=== PATIENT | male | born 1965 | race Caucasian/White ===

== ENCOUNTER 2017-06-26 22:36 | Observation (INO) ==
[2017-06-26 23:36] LABS: BUN/Creatinine Ratio 14 (6-26); Blood Urea Nitrogen 18 mg/dL (8-26); Carbon Dioxide 25 mEq/L (19-29); Chloride 107 mEq/L (98-109); Glucose 88 mg/dL (70-99); Osmolality,Calculated 293 (280-300); Potassium 3.6 mEq/L (3.5-4.5); Sodium 141 mEq/L (136-145); eGFR For African Americans > 60 (> 60); eGFR For Non-African Americans 57 (> 60)
--- NOTE | 2017-06-26 23:44 | Emergency Department Note ---
Disposition Clinical Impression: Dizziness Headache Qualifiers: Headache type: unspecified Headache chronicity pattern: acute headache Intractability: intractable Qualified Code(s): R51 - Headache Disposition: Admitted As Inpatient Condition: Good Time of Disposition: 02:04 General Adult HPI - General Chief complaint: ED General Medical Stated complaint: high bp dizziness Time Seen by Provider: 06/26/17 22:41 Source: patient Mode of arrival: ambulatory Limitations: other (MRDD) Nursing Notes Reviewed: Yes Vital Signs Reviewed: Yes - History of Present Illness HPI Narrative: 51-year-old male with significant past medical history of hypertension and MRDD presenting to the emergency department with chief complaint of dizziness, headache and high blood pressure. According to the patient this evening around 10 PM he is getting ready to take a bath and he had sudden diffuse onset of headache. He states he also felt like he was dizzy. He states it was not like the room was spinning but rather weakness. Patient states he noticed his blood pressure was elevated this evening as well approximately 160 systolic and 100 diastolic. Patient has no significant cardiac or stroke history. History of present illness Limited due to MRDD. He states he has a history of headaches but this one is very different. He normally gets a localized headache to the frontal area. This one is diffuse and much worse than his previous. Pain Scale: 0 - Related Data Allergies Allergy/AdvReac Type Severity Reaction Status Date / Time pollen extracts Allergy See Verified 06/26/17 22:39 Comments All systems ED: reviewed and negative except as stated. Constitutional: Denies: fever, chills Eyes: Reports: as per HPI ENT ED: Reports: as per HPI Cardiovascular: Denies: chest pain, palpitations Respiratory: Denies: cough, dyspnea, wheezes Gastrointestinal: Denies: abdominal pain, nausea, vomiting Genitourinary: Reports: as per HPI Musculoskeletal: Reports: as per HPI Integumentary: Denies: rash, abrasion Neurological: Reports: headache. Denies: weakness, numbness, paresthesias Psychiatric: Reports: as per HPI Endocrine: Reports: as per HPI Hematological/Lymphatic: Reports: as per HPI Allergic/Immunologic: Reports: as per HPI Past Medical History - Past Medical History Attestation: Yes The following information was validated with the patient. Medical history: Reports: diabetes, hypertension Psychiatric history: Reports: no psych history - Social History Smoking Status: Never smoker Smokeless Tobacco Status: No Alcohol use: Reports: none Drug use: Reports: none Physical Exam - General Limitations: no limitations General appearance: alert, in no apparent distress - Head Head exam: atraumatic, normocephalic, normal inspection - Eye Eye exam: Present: normal appearance, PERRL. Absent: scleral icterus, conjunctival injection - Neck Neck exam: Present: normal inspection, full ROM. Absent: tenderness, meningismus - Chest Chest inspection: Present: normal inspection, symmetric chest wall rise. Absent : tenderness, rash - Respiratory Respiratory exam: Present: normal lung sounds bilaterally. Absent: respiratory distress, wheezes - Cardiovascular Cardiovascular exam: Present: regular rate, normal rhythm, normal heart sounds - Abdominal Exam Abdominal exam: Present: soft, Non-Tender. Absent: distention, guarding, rebound - Extremities Exam Extremities exam: Present: normal inspection, full ROM - Neurological Exam Neurological exam: Present: alert, oriented X3, CN II-XII intact, other (Ataxic gait according to health care worker. Extraocular movements limited. Unsure if this is due to physical abnormality or patient's inability to understand the test. Cerebellar exam within normal limits.) - Psychiatric Psychiatric exam: Present: normal affect, normal mood - Skin Skin exam: Present: warm, intact Course Course Narrative: 51-year-old male presenting to the emergency department with chief complaint of acute dizziness and headache. Patient is alert and oriented 3 in the room with stable vital signs. He does have MR DD. Limited physical exam. Unsure if this is due to physical abnormality or inability of the patient to understand the instructions. We will perform a CT of the head along with basic lab work including hemoglobin, BMP. Disposition pending results. He agrees with this plan. - Reevaluation(s) Reevaluation #1: All of patient's lab work and CT imaging is comes back within normal limits. Patient still states he has having a headache at this time. When we tried to him believe the patient he was ataxic which is not patient's baseline. Patient originally declined having an LP done but did agree to getting admitted. He is alert and oriented 3 in the room and stable vital signs at this time. I spoke with the hospitalist on-call who agrees to accept the patient at this time. Reevaluation #2: Patient has decided that he would like the lumbar puncture. vice president global digital marketing Dr. Zafar will complete the lumbar puncture. Please refer to his procedure note. After lumbar puncture we will admit the patient to the floor. Vital Signs Temperature 97.7 F 06/26/17 22:36 Pulse Rate 74 06/26/17 22:36 Respiratory Rate 20 06/26/17 22:36 Blood Pressure 155/95 06/26/17 22:36 O2 Sat by Pulse Oximetry 98 06/26/17 22:36 Temperature 97.7 F 06/26/17 22:36 Pulse Rate 81 06/27/17 00:23 Respiratory Rate 16 06/26/17 23:56 Blood Pressure 147/92 06/27/17 00:23 O2 Sat by Pulse Oximetry 100 06/27/17 00:23 Oxygen Delivery Oxygen Delivery Room Air Medical Decision Making - Lab Data Result diagrams: 06/26/17 22:58 06/26/17 22:58 Lab Results 06/26/17 06/26/17 06/26/17 Range/Units 22:58 22:58 23:38 Hgb 13.4 (12.9-16.9) g/dL Sodium 141 (136-145) mEq/L Potassium 3.6 (3.5-4.5) mEq/L Chloride 107 (98-109) mEq/L Carbon Dioxide 25 (19-29) mEq/L BUN 18 (8-26) mg/dL Creatinine 1.33 H (0.72-1.25) mg/dL Est GFR ( Amer) > 60 (> 60) Est GFR (Non-Af Amer) 57 L (> 60) BUN/Creatinine Ratio 14 (6-26) Glucose 88 (70-99) mg/dL Calculated Osmolality 293 (280-300) Calcium 10.0 (8.6-10.8) mg/dL Urine Color Yellow (Yellow) Urine Clarity Clear (Clear) Urine pH 6.5 (5.0-8.0) pH Units Ur Specific [place] 1.021 (1.010-1.025) Urine Protein Negative (Neg-Trace) mg/dL Urine Glucose (UA) Normal (Normal) mg/dL Urine Ketones Negative (Negative) mg/dL Urine Blood Negative (Negative) Urine Nitrite Negative (Negative) Urine Bilirubin Negative (Negative) Urine Urobilinogen Normal (Normal) mg/dL Ur Leukocyte Esterase Trace H (Negative) Urine Microscopic RBC 0-3 (0-3) per hpf Urine Microscopic WBC 5-15 H (0-3) per hpf Ur Squamous Epith Cells Moderate H (None-Few) per lpf Urine Bacteria None Seen (None-Few) per hpf Hyaline Casts None Seen (None-Few) per lpf Ur Culture Indicated? YES A (NO) Attestation Statement - Attestation Attestation: I examined this patient and my medical decision-making was reviewed with the Resident Physician. I agree with the documented findings, disposition and treatment plan as described except to the extent set forth below. Sudden onset severe headache, no h/o similar. No photophobia, no neck pain/ stiffness, no fever. Pain maximal at onset per pt report. Suspicious for SAH despite lack of photophobia, neck stiffness. Pt initially refused LP to r/o SAH , then changed his mind. CT unremarkable. Present and available for Dr. Thompson's LP, see his note for details. Pt still dizzy, ataxic; admit for observation, MRI in AM, possible neuro consult.
[2017-06-26 23:47] LABS: Bilirubin,Urine Negative (Negative); Blood,Urine Negative (Negative); Clarity,Urine Clear (Clear); Color,Urine Yellow (Yellow); Glucose,Urine (UA) Normal (Normal); Ketones,Urine Negative (Negative); Leukocyte Esterase,Urine Trace (Negative); Nitrite,Urine Negative (Negative); PH,Urine 6.5 pH Units (5.0-8.0); Protein,Urine Negative (Neg-Trace); Specific Gravity,Urine 1.021 (1.010-1.025); Urobilinogen,Urine Normal (Normal)
[2017-06-26 23:50] LABS: Bacteria,Urine None Seen per hpf (None-Few); Hyaline Casts,Urine None Seen per lpf (None-Few); RBC,Urine 0-3 per hpf (0-3); Squamous Epithelial Cell,Urine Moderate per lpf (None-Few)
[2017-06-27] MEDS ORDERED: 0.9 % Sodium Chloride 1,000 ML IVC ONE (00:02)
[2017-06-27] MEDS ORDERED: Naloxone 0.4 MG/ML INJ IVP PRN ×2 (01:29→01:31)
--- NOTE | 2017-06-27 01:33 | Internal Med History&Physical ---
Date of Encounter: 06/27/17 Time of Encounter: 01:32 Assessment and Plan (1) Headache Current visit: Yes Status: Acute has headache,dizziness and ataxia d/w ED for LP to r/o SAH CT head w/o acute findings MRI w/o contrast to r/o occipital CVA Further investigation/management pending above studies Qualifiers: Headache type: other headache syndrome Qualified Code(s): G44.89 - Other headache syndrome (2) Dizziness Current visit: Yes Status: Acute (3) Mental retardation Current visit: Yes Status: Acute baseline (4) HTN (hypertension) Current visit: Yes Status: Acute doubt symptoms caused by BP Prn hydralazine IV for SBP >160 close neurocheck monitoring for now Qualifiers: Hypertension type: essential hypertension Qualified Code(s): I10 - Essential (primary) hypertension Internal Medicine - H&P: HPI Chief complaint: Dizziness, headache History of present illness: Mr. Paniagua is a 51 year old male with MRDD, HTN, HLD, depression, DMII who presents with acute onset headache and dizziness this past evening. He has MRDD and has a health aide with him daily ([employer]). He ambulates independently at baseline. This evening, when he was helped to the bathroom to the shower, he had a sudden headache, radiates all over, 10/10 that is associated with dizziness and ataxia on ambulation. He denies any visual changes but with headache and dizziness persistent lasting for several hours with no improvement. CT/CT head/brain wo con IMPRESSION: No acute intracranial abnormality. Past Med Surg Social Fam HX - Past Medical History Medical history: diabetes, hypertension Psychiatric history: no psych history - Past Surgical History Surgical History: no surgical history, non-contributory - Social History Smoking Status: Never smoker Smokeless Tobacco Status: No Alcohol use: none Drug use: none - Additional Family History Additional family history: HTN Internal Medicine - H&P: Meds 3 Allergy/AdvReac Type Severity Reaction Status Date / Time pollen extracts Allergy See Verified 06/26/17 22:39 Comments All Systems PM: A 10-system review of systems was performed and is negative for pertinent findings except as documented above in the HPI. Review of systems: ROS 14 point review of systems reviewed as best as possible given presentation. Pertinent positive or negative as per HPI or otherwise reviewed as negative - Constitutional Vitals: Temp Pulse Resp BP Pulse Ox 97.7 F 81 16 147/92 100 06/26/17 22:36 06/27/17 00:23 06/26/17 23:56 06/27/17 00:23 06/27/17 00:23 Exam: General - AAO x 3 Psych - Appropriate affect/speech. No agitation Eyes - FLO. Eye lids intact. No scleral icterus Neuro - No gross peripheral or central neuro deficits with intact CN 2-12 exam Heart - Sinus. RRR. S1 and S2 present. No added HS/murmurs appreciated. No elevated JVD appreciated. Lung - Adequate air entry b/l, No crackles/wheezes appreciated GI - Soft, non-tender. No hepatosplenomegaly/ascites. BS+ - No CVA/suprapubic tenderness or palpable bladder distension Skin - Intact. No rash/petechiae/ecchymosis. Warm extremities. Trace b/l edema Internal Med - H&P Results - Labs CBC & Chem 7: 06/26/17 22:58 06/26/17 22:58
--- NOTE | 2017-06-27 02:31 | Emergency Department Note ---
Disposition Clinical Impression: Dizziness Headache Qualifiers: Headache type: unspecified Headache chronicity pattern: acute headache Intractability: intractable Qualified Code(s): R51 - Headache Disposition: Admitted As Inpatient Condition: Good General Adult HPI - General Chief complaint: ED General Medical Stated complaint: high bp dizziness Time Seen by Provider: 06/26/17 22:41 Source: patient Mode of arrival: ambulatory Limitations: no limitations - History of Present Illness Pain Scale: 0 - Related Data Allergies Allergy/AdvReac Type Severity Reaction Status Date / Time pollen extracts Allergy See Verified 06/26/17 22:39 Comments Constitutional: Denies: fever, chills Eyes: Reports: as per HPI ENT ED: Reports: as per HPI Cardiovascular: Denies: chest pain, palpitations Respiratory: Denies: cough, dyspnea, wheezes Gastrointestinal: Denies: abdominal pain, nausea, vomiting Genitourinary: Reports: as per HPI Musculoskeletal: Reports: as per HPI Integumentary: Denies: rash, abrasion Neurological: Reports: headache. Denies: weakness, numbness, paresthesias Psychiatric: Reports: as per HPI Endocrine: Reports: as per HPI Hematological/Lymphatic: Reports: as per HPI Allergic/Immunologic: Reports: as per HPI Past Medical History - Past Medical History Medical history: Reports: diabetes, hypertension Surgical history: Reports: no surgical history, non-contributory Psychiatric history: Reports: no psych history - Social History Smoking Status: Never smoker Smokeless Tobacco Status: No Alcohol use: Reports: none Drug use: Reports: none Physical Exam - General Limitations: no limitations General appearance: alert, in no apparent distress Course Course Narrative: I performed LP on patient, note opened for procedure note purposes. Please refer to Dr. Ureña's and Dr. Mota's note for further detail. Vital Signs Temperature 97.7 F 06/26/17 22:36 Pulse Rate 74 06/26/17 22:36 Respiratory Rate 20 06/26/17 22:36 Blood Pressure 155/95 06/26/17 22:36 O2 Sat by Pulse Oximetry 98 06/26/17 22:36 Temperature 97.7 F 06/26/17 22:36 Pulse Rate 81 06/27/17 00:23 Respiratory Rate 16 06/26/17 23:56 Blood Pressure 147/92 06/27/17 00:23 O2 Sat by Pulse Oximetry 100 06/27/17 00:23 Oxygen Delivery Oxygen Delivery Room Air Procedures - Lumbar Puncture Consent Obtained: written consent Time Out Performed: Yes Patient Position: upright Skin Prep: Povidone-Iodine 1% Local Anesthetic: lidocaine 1% Amount of anesthesia used (mL): 5 Spinal Needle Gauge: 20G Interspace Used: L3-L4 Fluid Initially Obtained: clear Additional Comments: First attempt at L4-L5 interspace not successful. Re-attempted L3-L4 and successful. No other complications. Tolerated well. Complications: none Medical Decision Making - Lab Data Result diagrams: 06/26/17 22:58 06/26/17 22:58 Lab Results 06/26/17 06/26/17 06/26/17 Range/Units 22:58 22:58 23:38 Hgb 13.4 (12.9-16.9) g/dL Sodium 141 (136-145) mEq/L Potassium 3.6 (3.5-4.5) mEq/L Chloride 107 (98-109) mEq/L Carbon Dioxide 25 (19-29) mEq/L BUN 18 (8-26) mg/dL Creatinine 1.33 H (0.72-1.25) mg/dL Est GFR ( Amer) > 60 (> 60) Est GFR (Non-Af Amer) 57 L (> 60) BUN/Creatinine Ratio 14 (6-26) Glucose 88 (70-99) mg/dL Calculated Osmolality 293 (280-300) Calcium 10.0 (8.6-10.8) mg/dL Urine Color Yellow (Yellow) Urine Clarity Clear (Clear) Urine pH 6.5 (5.0-8.0) pH Units Ur Specific [place] 1.021 (1.010-1.025) Urine Protein Negative (Neg-Trace) mg/dL Urine Glucose (UA) Normal (Normal) mg/dL Urine Ketones Negative (Negative) mg/dL Urine Blood Negative (Negative) Urine Nitrite Negative (Negative) Urine Bilirubin Negative (Negative) Urine Urobilinogen Normal (Normal) mg/dL Ur Leukocyte Esterase Trace H (Negative) Urine Microscopic RBC 0-3 (0-3) per hpf Urine Microscopic WBC 5-15 H (0-3) per hpf Ur Squamous Epith Cells Moderate H (None-Few) per lpf Urine Bacteria None Seen (None-Few) per hpf Hyaline Casts None Seen (None-Few) per lpf Ur Culture Indicated? YES A (NO)
[2017-06-27 03:25] LABS: Red Blood Cell,CSF < 0.002 M/mcL
[2017-06-27 03:26] LABS: Red Blood Cell,CSF < 0.002 M/mcL
[2017-06-27] MEDS: amLODIPine 5 MG TABLET PO SCH ×2 (03:36→09:12)
[2017-06-27 03:53] LABS: Glucose,CSF 49 mg/dL (40-70); Total Protein,CSF 99 mg/dL (15-45)
[2017-06-27 04:07] LABS: Appearance,CSF Clear (Clear)
[2017-06-27 04:09] LABS: Appearance,CSF Clear (Clear)
[2017-06-27 05:01] LABS: Basophils % 0.6 %; Eosinophils # 0.1 K/mcL (0.0-0.6); Eosinophils % 1.9 %; Hematocrit 39.3 % (37.5-50.1); Hemoglobin 12.9 g/dL (12.9-16.9); Immature Granulocytes % 0.4 % (0-4); Lymphocytes # 1.8 K/mcL (0.6-4.6); Lymphocytes % 25.1 %; Mean Corpuscular HGB Conc 32.8 g/dL (31.6-35.5); Mean Corpuscular Hemoglobin 28.7 pg (28.0-33.3); Mean Corpuscular Volume 87.3 fL (83.0-100.0); Mean Platelet Volume 9.7 fL (9.4-12.4); Monocytes # 0.5 K/mcL (0.0-1.3); Monocytes % 6.8 %; Neutrophils # 4.6 K/mcL (1.6-8.9); Platelet Count 138 K/mcL (140-400); Red Cell Distribution Width 14.6 % (11.5-14.5); Segmented Neutrophils % 65.2 %
[2017-06-27 05:19] LABS: BUN/Creatinine Ratio 16 (6-26); Blood Urea Nitrogen 18 mg/dL (8-26); Carbon Dioxide 21 mEq/L (19-29); Chloride 110 mEq/L (98-109); Glucose 94 mg/dL (70-99); Osmolality,Calculated 294 (280-300); Potassium 3.6 mEq/L (3.5-4.5); Sodium 141 mEq/L (136-145); eGFR For African Americans > 60 (> 60); eGFR For Non-African Americans > 60 (> 60)
[2017-06-27] MEDS: hydroCHLOROthiazide 25 MG TABLET PO SCH (09:11)
[2017-06-27] MEDS: Topiramate 100 MG TABLET PO SCH ×2 (09:12→21:42)
[2017-06-27] MEDS: Lisinopril 20 MG TABLET PO SCH (09:13)
[2017-06-27] MEDS: *HR* SitaGLIPtin 100 MG TABLET PO SCH (09:13)
--- NOTE | 2017-06-27 13:51 | Internal Med Progress Note ---
Date of Encounter: 06/27/17 Time of Encounter: 13:49 - Assessment and plan (1) Headache Current Visit: Yes Status: Acute Assessment and plan: presented with headache, dizziness and ataxia. LP in ED unremarkable. Head CT nonacute. Headache now resolved. Brain MRI to rule out occipital CVA pending. Qualifiers: Headache type: unspecified Headache chronicity pattern: acute headache Intractability: intractable Qualified Code(s): R51 - Headache (2) HTN (hypertension) Current Visit: Yes Status: Acute Assessment and plan: per hx. BP elevated on arrival now well controlled. Continue home BP medication. Monitor BP and titrate PRN Qualifiers: Hypertension type: essential hypertension Qualified Code(s): I10 - Essential (primary) hypertension (3) Mental retardation Current Visit: Yes Status: Acute Assessment and plan: Mentation appears at baseline. Supportive care. (4) DVT prophylaxis Current Visit: Yes Status: Acute Assessment and plan: heparin - Subjective Interval history: Seen and examined at bedside. Patient is due to me, information obtained from chart review and patient report. Patient is somewhat hard understand due to speech impediment however he tells me that he came in with a headache and he thinks he has blood on his brain. Denies headache at this time. No double or blurred vision. - Constitutional Vitals: Temp Pulse Resp BP Pulse Ox 97.3 F L 90 16 128/86 94 06/27/17 11:48 06/27/17 11:48 06/27/17 11:48 06/27/17 11:48 06/27/17 11:48 General appearance: Present: A&O X 3 - Head Head exam: Present: atraumatic, normocephalic - Eye Eye exam: Present: PERRL, conjuntiva pink, sclera anicteric Pupils: Present: PERRL - Neck Neck exam general surgery: Present: supple, trachea midline. Absent: lymphadenopathy - Respiratory Respiratory exam: Present: CTAB. Absent: accessory muscle use, rales, rhonchi, wheezes - Cardiovascular Cardiovascular exam: Present: RRR, +S1, +S2. Absent: diastolic murmur, gallop, rubs, systolic murmur - GI/Abdominal GI/Abdominal exam: Present: normal bowel sounds, soft, no peritoneal signs. Absent: distended, tenderness - Extremities Exam Extremities exam: Present: warm, radial pulses palpable and symmetrical. Absent : calf tenderness, cyanotic, pedal edema - Neurological Exam Neurological exam: Present: CN II-XII intact, oriented X3, no focal deficits. Absent: pronater drift, facial droop, speech deficit - Skin Skin exam: Present: dry, intact Internal Medicine: Result - Labs CBC & Chem 7: 06/27/17 04:14 06/27/17 04:14 Labs: Short CBC 06/27/17 Range/Units 04:14 WBC 7.0 (4.3-11.1) K/mcL Hgb 12.9 (12.9-16.9) g/dL Hct 39.3 (37.5-50.1) % Plt Count 138 L (140-400) K/mcL Neutrophils # 4.6 (1.6-8.9) K/mcL BMP 06/27/17 04:14 Sodium 141 Potassium 3.6 Chloride 110 H Carbon Dioxide 21 BUN 18 Creatinine 1.10 Glucose 94 Calcium 9.0 Consult Discharge Plan - Plan Referrals: Nick Flower MD [Primary Care Provider] -
--- NOTE | 2017-06-27 17:09 | Electrocardiograph Report ---
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
[2017-06-27] MEDS: *HR* Heparin 5,000 UNIT/ML VIAL SQ SCH ×2 (18:26→21:42)
[2017-06-27] MEDS ORDERED: RisperiDAL 3 MG TABLET PO SCH (21:00)
[2017-06-28] MEDS: *HR* Heparin 5,000 UNIT/ML VIAL SQ SCH (04:29)
[2017-06-28 07:09] VITALS: BP 105/72
[2017-06-28] MEDS: hydroCHLOROthiazide 25 MG TABLET PO SCH (08:08)
[2017-06-28] MEDS: *HR* SitaGLIPtin 100 MG TABLET PO SCH (08:09)
[2017-06-28] MEDS: amLODIPine 5 MG TABLET PO SCH (08:09)
[2017-06-28] MEDS: Lisinopril 20 MG TABLET PO SCH (08:10)
[2017-06-28] MEDS: Topiramate 100 MG TABLET PO SCH (08:10)
--- NOTE | 2017-06-28 08:54 | Discharge Summary ---
Date of Encounter: 06/28/17 Time of Encounter: 08:52 - Discharge Diagnosis (1) Headache Priority: Primary Status: Resolved Comments: presented with reported headache, dizziness and ataxia. Details unclear as patient has a slight MRDD with speech impediment and is difficult to understand and no family or custodial staff at bedside for collateral. LP in ED unremarkable. Head CT nonacute. Brain MRI negative for acute infarct or acute intracranial abnormality. Headache resolved shortly after arrival to ED spontaneously and without intervention. No recurrence while inpatient. No red flag or danger signs; no obvious infectious/metabolic abnormalities, no neurological symptoms or obvious trauma. Suspect headache secondary to uncontrolled BP. Patient at baseline, no further testing required at this time. Qualifiers: Headache type: unspecified Headache chronicity pattern: acute headache Intractability: not intractable Qualified Code(s): R51 - Headache (2) HTN (hypertension) Priority: Primary Status: Chronic Comments: per hx. BP elevated on arrival now well controlled. Continue home BP medication. Qualifiers: Hypertension type: essential hypertension Qualified Code(s): I10 - Essential (primary) hypertension (3) JUAN (acute kidney injury) Priority: Primary Status: Resolved Comments: Cr 1.33 on arrival, resolved is encouraging PO intake. Recommend repeat CMP with PCP within 1-2 weeks. (4) Diabetes Priority: Secondary Status: Chronic Comments: per hx. blood sugars well controlled. Continue home diabetes medication regimen. Qualifiers: Diabetes mellitus type: type 2 Diabetes mellitus complication status: without complication Diabetes mellitus [facility] insulin use: without computer terminal operator use Qualified Code(s): E11.9 - Type 2 diabetes mellitus without complications (5) Mental retardation Priority: Secondary Status: Chronic Comments: per hx. mentation at baseline. - Discharge Medications Home Medications: Carbamide Peroxide [Ear Drops] 1 drop BOTH EARS DAILY PRN 06/27/17 [History] Escitalopram [Lexapro] 5 mg PO DAILY 06/27/17 [History] Escitalopram [Lexapro] 10 mg PO DAILY 06/27/17 [History] Esomeprazole Magnesium [Nexium] 40 mg PO DAILY 06/27/17 [History] Glimepiride [Amaryl] 2 mg PO DAILY 06/27/17 [History] Lisinopril 2.5 mg PO HS 06/27/17 [History] Lisinopril [Zestril] 10 mg PO QAM 06/27/17 [History] Montelukast [Singulair] 10 mg PO DAILY 06/27/17 [History] Pravastatin Sodium 10 mg PO DAILY 06/27/17 [History] SitaGLIPtin [Januvia] 100 mg PO DAILY 06/27/17 [History] Topiramate [Topamax] 100 mg PO BID 06/27/17 [History] lamoTRIgine [Lamictal] 150 mg PO BID 06/27/17 [History] risperiDONE [Risperdal] 3 mg PO HS 06/27/17 [History] traZODone [TraZODone] 75 mg PO HS 06/27/17 [History] Allergies/Adverse Reactions: 3 Allergy/AdvReac Type Severity Reaction Status Date / Time pollen extracts Allergy See Verified 06/26/17 22:39 Comments Procedures/tests Complete & Pending: Procedures Performed prior 72 hours Category Date Time Status MR head/brain wo con [MR] Routine MRI 06/27/17 07:05 Completed ECG 12 lead ECG [ECG] Routine Y 06/26/17 22:47 Completed Date of admission: 06/27/17 01:26 Primary care physician: Nick Flower MD Consults: 06/27/17 01:31 Consult to Occupational Therapy [CONS] Routine Comment: Evaluate, develop and implement POC Reason for Consult: ambulate and assess Consult to Physical Therapy [CONS] Routine Comment: Evaluate, develop and implement POC Reason for Consult: ambulate assess for placement need Discharging clinician: Gabby Banda Anticipated date of discharge: 06/28/17 - Patient Status Disposition: Home Health Service Condition: Good Functional capacity at discharge: independent ambulation Overall status at discharge: patient is back to baseline - Discharge Instructions Instructions: Tension Headache (DC), Hypertension (DC) Follow Up With: Nick Flower MD [Primary Care Provider] - - Diet and Activity Activity: increase activity as tolerated, resume usual activities as tolerated Diet: advance to your usual diet Interval History: Seen and examined at bedside. Patient had an uneventful night, no recurrence of headache. Says he feels fine and back to baseline. Discussed with RN and patient up ad david. to shower, no gait abnormality or ataxia noted. He is requesting to stay overnight in the hospital for though she basketball game this evening however he is aware and agreeable to discharge back to custodial. He has no complaints at time of discharge; specifically denies headache, no vision changes, no numbness or tingling, no chest pain, no shortness of breath Hospital course: See assessment and plan for hospital course - Time Spent with Patient Total time spent providing and/or coordinating discharge services: - Constitutional Vitals: Temp Pulse Resp BP Pulse Ox 97.4 F L 80 16 105/72 95 06/28/17 07:08 06/28/17 07:08 06/28/17 07:08 06/28/17 07:08 06/28/17 07:08 General appearance: Present: A&O X 3, no acute distress - Head Head exam: Present: atraumatic, normocephalic - Eye Eye exam: Present: PERRL, conjuntiva pink, sclera anicteric Pupils: Present: PERRL - Neck Neck exam general surgery: Present: supple, trachea midline. Absent: lymphadenopathy - Respiratory Respiratory exam: Present: CTAB. Absent: accessory muscle use, rales, rhonchi, wheezes - Cardiovascular Cardiovascular exam: Present: RRR, +S1, +S2. Absent: diastolic murmur, gallop, rubs, systolic murmur - GI/Abdominal GI/Abdominal exam: Present: normal bowel sounds, soft, no peritoneal signs. Absent: distended, tenderness - Extremities Exam Extremities exam: Present: warm, radial pulses palpable and symmetrical. Absent : calf tenderness, cyanotic, pedal edema - Neurological Exam Neurological exam: Present: CN II-XII intact, oriented X3, no focal deficits. Absent: pronater drift, facial droop, speech deficit - Skin Skin exam: Present: dry, intact
== END 2017-06-28 10:58 | disposition home health service (06) ==
LOC: 3BNU 22:36 → EMEROO 22:36 → 3BNU 06-27 02:58
PROVIDERS: ADMIT Internal Medicine Hematology & Oncology; ATTEND Registered Nurse

== ENCOUNTER 2017-08-22 10:02 | Observation (INO) ==
--- NOTE | 2017-08-22 10:10 | Emergency Department Note ---
Disposition Clinical Impression: Transient cerebral ischemia Qualifiers: Transient cerebral ischemia type: unspecified Qualified Code(s): G45.9 - Transient cerebral ischemic attack, unspecified Disposition: Admitted As Inpatient Condition: Fair Referrals: Nick Flower MD [Primary Care Provider] - Forms: ED Satisfaction Letter Time of Disposition: 10:13 Neuro HPI - General Chief Complaint: ED Neuro Symptoms/Deficit Stated Complaint: Neuro Symptoms Time Seen by Provider: 08/22/17 10:05 Source: patient, EMS Mode of arrival: EMS Limitations: no limitations Nursing Notes Reviewed: Yes Vital Signs Reviewed: Yes - History of Present Illness HPI Narrative: 51-year-old with a history of developmental disability who apparently developed a headache this morning and was a phasic prior to arrival. Squad reports initially he was a phasic but during the ride to the hospital he was able to speak. Squad members have transported him before and states it's his speech is back to baseline. She did not take his blood pressure medicine this morning. Onset of Symptoms Date: 08/22/17 Onset of Symptoms Time: 09:15 Timing confirmed by: caregiver Location: speech History of same: No Severity: moderate Symptoms Improving: Yes Improves with: time Worsens with: none Context: sudden onset On Anticoagulants: No Associated symptoms: Reports: headaches Treatments Prior to Arrival: none - Related Data Home Medications: Home Medications Medication Instructions Recorded Confirmed Escitalopram [Lexapro] 10 mg PO DAILY 06/27/17 08/22/17 Esomeprazole Magnesium [Nexium] 40 mg PO DAILY 06/27/17 08/22/17 Lisinopril [Zestril] 10 mg PO DAILY 06/27/17 08/22/17 Montelukast [Singulair] 10 mg PO DAILY 06/27/17 08/22/17 SitaGLIPtin [Januvia] 100 mg PO DAILY 06/27/17 08/22/17 Topiramate [Topamax] 100 mg PO BID 06/27/17 08/22/17 lamoTRIgine [Lamictal] 150 mg PO BID 06/27/17 08/22/17 traZODone [TraZODone] 75 mg PO HS 06/27/17 08/22/17 Fluticasone Propionate Nasal 1 spr NS DAILY 08/22/17 08/22/17 [Flonase] Glimepiride [Amaryl] 2 mg PO DAILY 08/22/17 08/22/17 Hydrochlorothiazide [Microzide] 12.5 mg PO DAILY 08/22/17 08/22/17 Loratadine [Allergy Relief] 10 mg PO DAILY 08/22/17 08/22/17 risperiDONE [RisperDAL] 3 mg PO HS 08/22/17 08/22/17 Allergies/Adverse Reactions: Allergies Allergy/AdvReac Type Severity Reaction Status Date / Time pollen extracts Allergy See Verified 08/22/17 10:04 Comments All systems ED: reviewed and negative except as stated. Constitutional: Denies: fever, chills, weakness, weight change Eyes: Denies: eye pain, eye discharge, vision change ENT ED: Denies: ear pain, throat pain, dental pain, hearing loss, epistaxis, congestion, dysphagia Cardiovascular: Denies: chest pain, palpitations, dyspnea on exertion, edema, syncope Respiratory: Denies: cough, dyspnea, wheezes, hemoptysis, stridor Gastrointestinal: Denies: abdominal pain, nausea, vomiting, diarrhea, constipation, hematemesis, melena, hematochezia Genitourinary: Denies: urgency, dysuria, frequency, hematuria Musculoskeletal: Denies: back pain, neck pain, arthralgia, myalgia Integumentary: Denies: rash, abrasion, lesions Neurological: Reports: headache, other (Aphasia). Denies: weakness, numbness, paresthesias, confusion, abnormal gait, vertigo Psychiatric: Denies: anxiety, depression, suicidal thoughts, homicidal thoughts , auditory hallucinations, visual hallucinations Endocrine: Denies: fatigue Hematological/Lymphatic: Denies: easy bleeding, easy bruising Allergic/Immunologic: Denies: facial swelling, urticaria Past Medical History - Past Medical History Medical history: Reports: diabetes, hypertension Surgical history: Reports: no surgical history, non-contributory Psychiatric history: Reports: no psych history - Social History Smoking Status: Never smoker Smokeless Tobacco Status: No Alcohol use: Reports: none Drug use: Reports: none Physical Exam - General Limitations: no limitations General appearance: alert, in no apparent distress - Head Head exam: atraumatic, normocephalic, normal inspection - Eye Eye exam: Present: normal appearance, PERRL, EOMI - ENT ENT exam: normal exam, normal oropharynx, mucous membranes moist - Neck Neck exam: Present: normal inspection, full ROM, trachea midline - Chest Chest inspection: Present: normal inspection, symmetric chest wall rise - Respiratory Respiratory exam: Present: normal lung sounds bilaterally - Cardiovascular Cardiovascular exam: Present: regular rate, normal rhythm, normal heart sounds - Abdominal Exam Abdominal exam: Present: soft, Non-Tender. Absent: tenderness, distention, guarding, rebound, rigidity - Extremities Exam Extremities exam: Present: normal inspection, full ROM. Absent: tenderness, pedal edema - Expanded Lower Extremity Exam Neurovascular/Tendon exam: Absent: motor deficit, sensory deficit, tendon deficit Gait: observed and normal - Back Exam Back exam: Present: normal inspection, full ROM. Absent: tenderness - Neurological Exam Neurological exam: Present: alert, oriented X3. Absent: motor sensory deficit - Psychiatric Psychiatric exam: Present: normal affect, normal mood - Skin Skin exam: Present: warm, dry, intact, normal color Course - Reevaluation(s) Reevaluation #1: 51-year-old with a history of a pressure who today was found while at work with inability to speak. When the squad picked him up he had inability to speak but time he got here he was able to speak in his baseline. She was admitted several weeks ago for hypertension and dizziness had an MRI of the brain but did not have any imaging of his carotids. We'll be admitted with a TIA. Time: 13:24 - Consultations Consultation #1: Discussed with , admit Time: 13:24 Vital Signs Temperature 97.6 F 08/22/17 10:05 Pulse Rate 94 08/22/17 10:05 Respiratory Rate 18 08/22/17 10:05 Blood Pressure 139/92 08/22/17 10:05 O2 Sat by Pulse Oximetry 99 08/22/17 10:05 Temperature 97.6 F 08/22/17 10:05 Pulse Rate 94 08/22/17 10:05 Respiratory Rate 18 08/22/17 10:05 Blood Pressure 139/92 08/22/17 10:05 O2 Sat by Pulse Oximetry 99 08/22/17 10:05 Oxygen Delivery Oxygen Delivery Room Air Neuro Symptoms/Deficit - Lab Data Lab results reviewed: Yes I reviewed the patient's lab results. Result diagrams: 08/22/17 10:34 08/22/17 10:34 Lab Results 08/22/17 08/22/17 08/22/17 Range/Units 10:05 10:34 10:34 WBC 5.3 (4.3-11.1) K/mcL RBC 4.48 (4.19-5.50) M/mcL Hgb 12.7 L (12.9-16.9) g/dL Hct 40.2 (37.5-50.1) % MCV 89.7 (83.0-100.0) fL MCH 28.3 (28.0-33.3) pg MCHC 31.6 (31.6-35.5) g/dL RDW 14.6 H (11.5-14.5) % Plt Count 135 L (140-400) K/mcL MPV 9.4 (9.4-12.4) fL Immature Gran % 0.2 (0-4) % Seg Neutrophils % 63.5 % Lymphocytes % 26.7 % Monocytes % 6.9 % Eosinophils % 1.9 % Basophils % 0.8 % Neutrophils # 3.3 (1.6-8.9) K/mcL Lymphocytes # 1.4 (0.6-4.6) K/mcL Monocytes # 0.4 (0.0-1.3) K/mcL Eosinophils # 0.1 (0.0-0.6) K/mcL Basophils # 0.0 (0.0-0.2) K/mcL PT 11.7 (9.4-12.1) Seconds INR 1.1 APTT 31.3 (26.0-36.0) Seconds Sodium (136-145) mEq/L Potassium (3.5-5.1) mEq/L Chloride (98-107) mEq/L Carbon Dioxide (23-29) mEq/L BUN (6-20) mg/dL Creatinine (0.70-1.30) mg/dL Est GFR ( Amer) (> 60) Est GFR (Non-Af Amer) (> 60) BUN/Creatinine Ratio (6-26) Glucose (70-105) mg/dL POC Glucose 72 (58-89) Calculated Osmolality (280-300) Calcium (8.6-10.3) mg/dL Troponin I (< 0.04) ng/mL 18 08/22/17 Range/Units 10:34 10:34 WBC (4.3-11.1) K/mcL RBC (4.19-5.50) M/mcL Hgb (12.9-16.9) g/dL Hct (37.5-50.1) % MCV (83.0-100.0) fL MCH (28.0-33.3) pg MCHC (31.6-35.5) g/dL RDW (11.5-14.5) % Plt Count (140-400) K/mcL MPV (9.4-12.4) fL Immature Gran % (0-4) % Seg Neutrophils % % Lymphocytes % % Monocytes % % Eosinophils % % Basophils % % Neutrophils # (1.6-8.9) K/mcL Lymphocytes # (0.6-4.6) K/mcL Monocytes # (0.0-1.3) K/mcL Eosinophils # (0.0-0.6) K/mcL Basophils # (0.0-0.2) K/mcL PT (9.4-12.1) Seconds INR APTT (26.0-36.0) Seconds Sodium 139 (136-145) mEq/L Potassium 3.7 (3.5-5.1) mEq/L Chloride 111 H (98-107) mEq/L Carbon Dioxide 23 (23-29) mEq/L BUN 16 (6-20) mg/dL Creatinine 1.22 (0.70-1.30) mg/dL Est GFR ( Amer) > 60 (> 60) Est GFR (Non-Af Amer) > 60 (> 60) BUN/Creatinine Ratio 13 (6-26) Glucose 78 (70-105) mg/dL POC Glucose (58-89) Calculated Osmolality 288 (280-300) Calcium 9.0 (8.6-10.3) mg/dL Troponin I < 0.03 (< 0.04) ng/mL - Radiology Data Radiology results reviewed: Yes I reviewed the patient's radiology results. Head CT 08/22/17 10:07 IMPRESSION: No acute intracranial abnormality. D/ / Lucius Henriquez MD / Lucius Henriquez MD Interpreting Provider: Lucius Henriquez MD Hip X-Ray 08/22/17 10:08 IMPRESSION: No acute osseous abnormality or significant degenerative changes of the right hip. D/ / Lucius Henriquez MD / Lucius Henriquez MD Interpreting Provider: Lucius Henriquez MD - EKG Data EKG attestation: Yes I reviewed and interpreted this EKG. EKG shows normal: sinus rhythm Rate: normal Rhythm: NSR Interpretation: no acute changes NIH Stroke Scale - Level of Consciousness LOC: Alert - LOC Questions LOC Questions: Answers both correctly - LOC Commands LOC Commands: Performs both correctly - Best Gaze Best Gaze: Normal - Visual Visual: No visual loss - Facial Palsy Facial Palsy: Normal - Motor Arms Motor Arm-Left: No drift for 10 seconds Motor Arm-Right: No drift for 10 seconds - Motor Legs Motor Leg-Left: No drift for 5 seconds Motor Leg-Right: No drift for 5 seconds - Limb Ataxia Limb Ataxia: Normal, No Ataxia - Sensory Sensory: Normal - Best Language Best Language: No aphasia - Dysarthria Dysarthria: Normal - Extinction and Inattention Extinction and Inattention: Normal - NIHSS Total Score NIHSS Total Score: 0 TPA Checklist - Eligibilty for IV tPA 1. LKW equal to or less than 4.5 hours be before treatment: Yes 2. Clinical diagnosis of ischemic stroke causing deficit: No 3. Age 18 years or older: Yes - LKW: 3-4.5 hrs Add. Warnings/Precautions Patient/family understanding: The patient/family members have been counseled and understood the risk, benefit , and alternatives of treatment.
[2017-08-22 10:47] LABS: Basophils % 0.8 %; Eosinophils # 0.1 K/mcL (0.0-0.6); Eosinophils % 1.9 %; Hematocrit 40.2 % (37.5-50.1); Hemoglobin 12.7 g/dL (12.9-16.9); Immature Granulocytes % 0.2 % (0-4); Lymphocytes # 1.4 K/mcL (0.6-4.6); Lymphocytes % 26.7 %; Mean Corpuscular HGB Conc 31.6 g/dL (31.6-35.5); Mean Corpuscular Hemoglobin 28.3 pg (28.0-33.3); Mean Corpuscular Volume 89.7 fL (83.0-100.0); Mean Platelet Volume 9.4 fL (9.4-12.4); Monocytes # 0.4 K/mcL (0.0-1.3); Monocytes % 6.9 %; Neutrophils # 3.3 K/mcL (1.6-8.9); Platelet Count 135 K/mcL (140-400); Red Blood Count 4.48 M/mcL (4.19-5.50); Red Cell Distribution Width 14.6 % (11.5-14.5); Segmented Neutrophils % 63.5 %
[2017-08-22 10:52] LABS: INR 1.1; Prothrombin Time 11.7 Seconds (9.4-12.1)
[2017-08-22 10:55] LABS: Activated Partial Thrombo Time 31.3 Seconds (26.0-36.0)
[2017-08-22 11:07] LABS: BUN/Creatinine Ratio 13 (6-26); Blood Urea Nitrogen 16 mg/dL (6-20); Carbon Dioxide 23 mEq/L (23-29); Chloride 111 mEq/L (98-107); Glucose 78 mg/dL (70-105); Osmolality,Calculated 288 (280-300); Potassium 3.7 mEq/L (3.5-5.1); Sodium 139 mEq/L (136-145); eGFR For African Americans > 60 (> 60); eGFR For Non-African Americans > 60 (> 60)
--- NOTE | 2017-08-22 14:08 | Internal Med History&Physical ---
Date of Encounter: 08/22/17 Time of Encounter: 14:07 Assessment and Plan (1) Transient cerebral ischemia Current visit: Yes Status: Acute Transient aphasia / TIA: Adm for observation Telemetry CT-Head did not show acute pathology MRI brain w/o contrast ordered Neuro checks Bilateral dopper U/S of carotids. Qualifiers: Transient cerebral ischemia type: unspecified Qualified Code(s): G45.9 - Transient cerebral ischemic attack, unspecified (2) Diabetes Current visit: No Status: Chronic Continue home mediacations and Check A1c Qualifiers: Diabetes mellitus type: type 2 Diabetes mellitus complication status: without complication Diabetes mellitus long term care administrator insulin use: without long term care administrator use Qualified Code(s): E11.9 - Type 2 diabetes mellitus without complications (3) HTN (hypertension) Current visit: No Status: Chronic Continue home medications Qualifiers: Hypertension type: essential hypertension Qualified Code(s): I10 - Essential (primary) hypertension Internal Medicine - H&P: HPI Chief complaint: Transient aphasia History of present illness: 51-year-old developmentally man who developed a headache this morning and was temporarily aphasic. EMS apparently know the patient and reported that he was initially aphasic but by the time he arrived in the ER his symptoms resolved. Per report the EMS crew believe he's back to his baseline. He has no other focal neurological deficits. He apparently did not take his anti-HTN medications this am. His w/u thus far in negative. The CT-Head w/o contrast did not show acute pathology. His rt. hip is also painful w/o h/o fall or signs of trauma. X-rays did not show fracture or dislocation. He's hemodynamically stable and back to baseline. Past Med Surg Social Fam HX - Past Medical History Medical history: diabetes, hypertension Psychiatric history: no psych history - Past Surgical History Surgical History: no surgical history, non-contributory - Social History Smoking Status: Never smoker Smokeless Tobacco Status: No Alcohol use: none Drug use: none - Family History Father Living Status: Hx Family Respiratory Disorders: Yes Mother Hx Family Endocrine Disorder: Yes Internal Medicine - H&P: Meds Escitalopram [Lexapro] 10 mg PO DAILY 06/27/17 [History] Esomeprazole Magnesium [Nexium] 40 mg PO DAILY 06/27/17 [History] Lisinopril [Zestril] 10 mg PO DAILY 06/27/17 [History] Montelukast [Singulair] 10 mg PO DAILY 06/27/17 [History] SitaGLIPtin [Januvia] 100 mg PO DAILY 06/27/17 [History] Topiramate [Topamax] 100 mg PO BID 06/27/17 [History] lamoTRIgine [Lamictal] 150 mg PO BID 06/27/17 [History] traZODone [TraZODone] 75 mg PO HS 06/27/17 [History] Fluticasone Propionate Nasal [Flonase] 1 spr NS DAILY 08/22/17 [History] Glimepiride [Amaryl] 2 mg PO DAILY 08/22/17 [History] Hydrochlorothiazide [Microzide] 12.5 mg PO DAILY 08/22/17 [History] Loratadine [Allergy Relief] 10 mg PO DAILY 08/22/17 [History] risperiDONE [RisperDAL] 3 mg PO HS 08/22/17 [History] 3 Allergy/AdvReac Type Severity Reaction Status Date / Time pollen extracts Allergy See Verified 08/22/17 10:04 Comments All Systems PM: A 10-system review of systems was performed and is negative for pertinent findings except as documented above in the HPI. - Constitutional Constitutional: no anorexia, no excessive sweating, no fever(s), no lethargy, no weakness - EENT Eyes: no blurry vision, no diplopia, no dry eye Ears: no ear discharge, no ear pain, no tinnitus Nose, mouth and throat: no bleeding gums, no dry mouth, no dysphagia, no lip swelling, no odynophagia - Cardiovascular Cardiovascular ROS IM: no chest pain, no diaphoresis, no dyspnea, no edema - Respiratory Respiratory: no dyspnea, no hemoptysis, no snoring - Gastrointestinal Gastrointestinal: no abdominal pain, no change in bowel habits, no constipation , no dyspepsia, no dysphagia, no hematemesis - Genitourinary Genitourinary ROS male: no difficulty urinating, no dysuria - Integumentary Integumentary IM: no rash, no skin ulcer, no jaundice - Neurological Neurological ROS: abnormal speech, headache(s), no abnormal hearing, no confusion, no convulsions, no loss of vision, no memory loss, no numbness, no paresthesias, no tremor(s), no vertigo, no weakness, no other visual disturbances - Endocrine Endocrine IM: no cold intolerance, no flushing, no polyphagia, no polyuria - Hematologic/Lymphatic Hematologic/Lymphatic: as per HPI - Allergic/Immunologic Allergic/Immunologic: no tongue swelling, no uticaria, no wheezing - Constitutional Vitals: Temp Pulse Resp BP Pulse Ox 97.6 F 92 16 141/95 100 08/22/17 10:05 08/22/17 14:02 08/22/17 14:02 08/22/17 14:02 08/22/17 14:02 General appearance: Present: cooperative, A&O X 3, pleasant - Head Head exam: Present: atraumatic, normocephalic - Eye Eye exam: Present: EOMI, PERRL, conjuntiva pink, sclera anicteric. Absent: conjunctival injection Pupils: Present: PERRL - Neck Neck exam general surgery: Present: supple, trachea midline. Absent: lymphadenopathy, nuchal rigidity, thyromegaly - Respiratory Respiratory exam: Present: CTAB. Absent: chest wall tenderness, prolonged expiratory phase, rales, respiratory distress, rhonchi, stridor, wheezes - Cardiovascular Cardiovascular exam: Present: RRR, +S1, +S2. Absent: diastolic murmur, rubs - GI/Abdominal GI/Abdominal exam: Present: normal bowel sounds, soft, no peritoneal signs. Absent: diminished bowel sounds, guarding, hyperactive bowel sounds, hypoactive bowel sounds, rebound, rigid - Neurological Exam Neurological exam: Present: alert, CN II-XII intact, oriented X3, reflexes normal, no focal deficits. Absent: altered, motor sensory deficit, pronater drift, facial droop, speech deficit - Expanded Skin Exam Type of lesion: Absent: abrasion, rash Internal Med - H&P Results - Labs CBC & Chem 7: 08/22/17 10:34 08/22/17 10:34
[2017-08-22] MEDS: traZODone 50 MG TABLET PO SCH (21:21)
[2017-08-22] MEDS: RisperiDAL 3 MG TABLET PO SCH (21:21)
[2017-08-22] MEDS: Topiramate 100 MG TABLET PO SCH (21:22)
[2017-08-22] MEDS: lamoTRIgine 100 MG TABLET PO SCH (21:22)
[2017-08-22] MEDS ORDERED: Acetaminophen 325 MG TABLET PO PRN (23:51)
[2017-08-23] MEDS: Acetaminophen 325 MG TABLET PO PRN ×2 (00:10→10:16)
[2017-08-23] MEDS: Loratadine 10 MG TABLET PO SCH (10:16)
[2017-08-23] MEDS: hydroCHLOROthiazide 25 MG TABLET PO SCH (10:16)
[2017-08-23] MEDS: *HR* SitaGLIPtin 100 MG TABLET PO SCH (10:17)
[2017-08-23] MEDS: Topiramate 100 MG TABLET PO SCH ×2 (10:17→20:54)
[2017-08-23] MEDS: *HR* Glimepiride 2 MG TABLET PO SCH (10:18)
[2017-08-23] MEDS: lamoTRIgine 100 MG TABLET PO SCH ×2 (10:21→20:53)
[2017-08-23] MEDS: Fluticasone Propionate Nasal 50 MCG/SPRAY BOTTLE NS SCH (13:01)
--- NOTE | 2017-08-23 16:36 | Internal Med Progress Note ---
Date of Encounter: 08/23/17 Time of Encounter: 13:00 - Assessment and plan (1) Dizziness Current Visit: No Status: Acute Assessment and plan: presented with plaintive dizziness and reported expressive aphasia. Head CT nonacute. Brain MRI without infarct. Bilateral carotids unremarkable. No symptom recurrence, symptoms resolved without intervention. Etiology unknown at this time. Check echo, orthostatic BPs. (2) HTN (hypertension) Current Visit: No Status: Chronic Assessment and plan: per hx. BP controlled. Continue home BP medication. Monitor BP and titrate PRN Qualifiers: Hypertension type: essential hypertension Qualified Code(s): I10 - Essential (primary) hypertension (3) JUAN (acute kidney injury) Current Visit: No Status: Resolved Assessment and plan: Cr 1.22 which appears better than baseline. Avoid nephrotoxic agents as possible. Monitor repeat CMP (4) Mental retardation Current Visit: No Status: Chronic Assessment and plan: per hx. Mentation appears at baseline. Supportive care (5) DVT prophylaxis Current Visit: Yes Status: Acute Assessment and plan: heparin - Subjective Interval history: Seen and examined at bedside; patient is known to me from previous admission. He has obvious cognitive impairment however he is able to converse appropriately and answer questions properly. Says he feels as if he is back to baseline. No further lightheadedness or dizziness. He denies palpitations, no paresthesias. - Constitutional Vitals: Temp Pulse Resp BP Pulse Ox 98.3 F 78 16 129/77 97 08/23/17 15:29 08/23/17 15:29 08/23/17 15:29 08/23/17 15:29 08/23/17 15:29 General appearance: Present: cooperative, A&O X 3, pleasant - Head Head exam: Present: atraumatic, normocephalic - Eye Eye exam: Present: PERRL, conjuntiva pink, sclera anicteric Pupils: Present: PERRL - Neck Neck exam general surgery: Present: supple, trachea midline. Absent: lymphadenopathy - Respiratory Respiratory exam: Present: CTAB. Absent: accessory muscle use, rales, rhonchi, wheezes - Cardiovascular Cardiovascular exam: Present: RRR, +S1, +S2. Absent: diastolic murmur, gallop, rubs, systolic murmur - GI/Abdominal GI/Abdominal exam: Present: normal bowel sounds, soft, no peritoneal signs. Absent: distended, tenderness - Extremities Exam Extremities exam: Present: warm, radial pulses palpable and symmetrical. Absent : calf tenderness, cyanotic, pedal edema - Neurological Exam Neurological exam: Present: CN II-XII intact, oriented X3, no focal deficits. Absent: pronater drift, facial droop, speech deficit - Skin Skin exam: Present: dry, intact Internal Medicine: Result - Labs CBC & Chem 7: 08/22/17 10:34 08/22/17 10:34 - ABG Interpretation ABG results: PT/INR, D-dimer PT 11.7 Seconds (9.4-12.1) 08/22/17 10:34 - Impressions Impressions Brain MRI 08/22/17 14:33 IMPRESSION: No acute infarct identified. D/ / Silvano Swanson MD / Silvano Swanson MD Interpreting Provider: Silvano Swanson MD Consult Discharge Plan - Plan Referrals: Nick Flower MD [Primary Care Provider] -
[2017-08-23] MEDS: traZODone 50 MG TABLET PO SCH (20:54)
[2017-08-23] MEDS: *HR* Heparin 5,000 UNIT/ML VIAL SQ SCH (20:55)
[2017-08-23] MEDS: RisperiDAL 3 MG TABLET PO SCH (20:55)
[2017-08-24] MEDS: *HR* Heparin 5,000 UNIT/ML VIAL SQ SCH (05:42)
[2017-08-24] MEDS: Fluticasone Propionate Nasal 50 MCG/SPRAY BOTTLE NS SCH (10:44)
[2017-08-24] MEDS: hydroCHLOROthiazide 25 MG TABLET PO SCH (10:44)
[2017-08-24] MEDS: *HR* Glimepiride 2 MG TABLET PO SCH (10:44)
[2017-08-24] MEDS: *HR* SitaGLIPtin 100 MG TABLET PO SCH (10:45)
[2017-08-24] MEDS: lamoTRIgine 100 MG TABLET PO SCH (10:45)
[2017-08-24] MEDS: Loratadine 10 MG TABLET PO SCH (10:46)
[2017-08-24] MEDS: Topiramate 100 MG TABLET PO SCH (10:46)
[2017-08-24 11:16] VITALS: BP 144/88
--- NOTE | 2017-08-24 11:16 | Discharge Summary ---
Date of Encounter: 08/24/17 Time of Encounter: 09:00 - Discharge Diagnosis (1) Dizziness Priority: Primary Status: Resolved Comments: presented with dizziness and reported expressive aphasia. Head CT non-acute. Brain MRI without infarct. Bilateral carotids unremarkable. TTE with preserved EF. No evidence of orthostasis. No symptom recurrence, symptoms resolved without intervention and patient requested discharge home. Recommend follow-up with PCP within 1-2 weeks. May benefit from a Holter monitor. (2) HTN (hypertension) Priority: Secondary Status: Chronic Comments: per hx. BP controlled. Continue home BP medication. Qualifiers: Hypertension type: essential hypertension Qualified Code(s): I10 - Essential (primary) hypertension (3) JUAN (acute kidney injury) Priority: Secondary Status: Resolved Comments: Cr 1.22 which appears better than baseline. Avoid nephrotoxic agents as possible. (4) Mental retardation Priority: Secondary Status: Chronic Comments: per hx. Mentation appears at baseline. Supportive care - Discharge Medications Home Medications: Escitalopram [Lexapro] 10 mg PO DAILY 06/27/17 [History] Esomeprazole Magnesium [Nexium] 40 mg PO DAILY 06/27/17 [History] Lisinopril [Zestril] 10 mg PO DAILY 06/27/17 [History] Montelukast [Singulair] 10 mg PO DAILY 06/27/17 [History] SitaGLIPtin [Januvia] 100 mg PO DAILY 06/27/17 [History] Topiramate [Topamax] 100 mg PO BID 06/27/17 [History] lamoTRIgine [Lamictal] 150 mg PO BID 06/27/17 [History] traZODone [TraZODone] 75 mg PO HS 06/27/17 [History] Fluticasone Propionate Nasal [Flonase] 1 spr NS DAILY 08/22/17 [History] Glimepiride [Amaryl] 2 mg PO DAILY 08/22/17 [History] Hydrochlorothiazide [Microzide] 12.5 mg PO DAILY 08/22/17 [History] Loratadine [Allergy Relief] 10 mg PO DAILY 08/22/17 [History] risperiDONE [RisperDAL] 3 mg PO HS 08/22/17 [History] Allergies/Adverse Reactions: 3 Allergy/AdvReac Type Severity Reaction Status Date / Time pollen extracts Allergy See Verified 08/22/17 10:04 Comments Procedures/tests Complete & Pending: Procedures Performed prior 72 hours Category Date Time Status MR head/brain wo con [MR] Routine MRI 08/22/17 14:33 Completed EV carotid duplex imaging BI Routine Y 08/22/17 14:31 Completed EV echocardiogram Routine Y 08/23/17 16:40 Ordered Date of admission: 08/22/17 13:49 Primary care physician: Nick Flower MD Discharging clinician: Gabby Banda Anticipated date of discharge: 08/24/17 - Patient Status Disposition: Home, Self-Care Condition: Good Functional capacity at discharge: independent ambulation Overall status at discharge: patient is back to baseline - Discharge Instructions Follow Up With: Nick Flower MD [Primary Care Provider] - (Appointment for follow up has been requested. Office will call next week with appointment date and time.) Forms: Inpatient Work/School Release - Diet and Activity Activity: increase activity as tolerated Diet: advance to your usual diet Interval History: Seen and examined at bedside. Patient says he feels better only to discharge home today. No further lightheadedness, dizziness or expressive aphasia. Hospital course: Mr. Paniagua is a 51 year old male - Time Spent with Patient Total time spent providing and/or coordinating discharge services: - Constitutional Vitals: Temp Pulse Resp BP Pulse Ox 97.8 F 92 16 141/88 96 08/24/17 07:14 08/24/17 07:14 08/24/17 07:14 08/24/17 10:16 08/24/17 07:14 General appearance: Present: cooperative, A&O X 3, pleasant - Head Head exam: Present: atraumatic, normocephalic - Eye Eye exam: Present: PERRL, conjuntiva pink, sclera anicteric Pupils: Present: PERRL - Neck Neck exam general surgery: Present: supple, trachea midline. Absent: lymphadenopathy - Respiratory Respiratory exam: Present: CTAB. Absent: accessory muscle use, rales, rhonchi, wheezes - Cardiovascular Cardiovascular exam: Present: RRR, +S1, +S2. Absent: diastolic murmur, gallop, rubs, systolic murmur - GI/Abdominal GI/Abdominal exam: Present: normal bowel sounds, soft, no peritoneal signs. Absent: distended, tenderness - Extremities Exam Extremities exam: Present: warm, radial pulses palpable and symmetrical. Absent : calf tenderness, cyanotic, pedal edema - Neurological Exam Neurological exam: Present: CN II-XII intact, oriented X3, no focal deficits. Absent: pronater drift, facial droop, speech deficit - Skin Skin exam: Present: dry, intact
--- NOTE | 2017-08-25 07:26 | Electrocardiograph Report ---
[place] [id number] Test Date: 2017-08-22 Pat Name: Ancelmo Paniagua Department: 103 Room: 3B13 Gender: M [employer] Supervisor: JAY : 1965 Requested By: Filiberto Rodriguez Order Number: [id number] Reading MD: Williams Villarreal MD Measurements Intervals Rebecca Rate: 79 P: 48 FL: 193 QRS: 10 QRSD: 100 T: 33 QT: 387 QTc: 421 Interpretive Statements SINUS RHYTHM WITH MARKED SINUS ARRHYTHMIA Electronically Signed On 08-25-2017 7:24:36 EST by Williams Villarreal MD
== END 2017-08-24 16:00 | disposition home or self-care (01) ==
LOC: EMEROO 10:02 → 3BNU 10:02
PROVIDERS: ADMIT Internal Medicine Cardiovascular Disease; ATTEND Registered Nurse